=== PATIENT | female | born 1970 | race Caucasian/White ===

== ENCOUNTER 2021-05-07 19:37 | Emergency (ER) | payer OTHER, SELFPAY ==
[2021-05-07] VITALS (13 sets, daily range): BP systolic 138–187; BP diastolic 84–105; PULSE 68–82; RESP 12–20; TEMP 36.8; O2SAT 97–100; BMI 24.0
--- NOTE | 2021-05-07 19:59 | DI.RAD.S_ITS ---
PROCEDURE: XR CHEST 1V INDICATIONS: chest pain TECHNIQUE: One view of the chest was acquired. COMPARISON: None. FINDINGS: Surgical changes and devices: None. Lungs and pleura: Lungs are clear. No pleural effusions or pneumothorax. Mediastinum: Mediastinal contours appear normal. Heart size is normal. Bones and chest wall: No suspicious bony lesions. Overlying soft tissues appear unremarkable. IMPRESSION: No acute cardiopulmonary abnormalities or focal airspace disease. Dictated by: Aaron Landis M.D. on 05/07/2021 at 20:13 Approved by: Aaron Landis M.D. on 05/07/2021 at 20:13
[2021-05-07 20:16] LABS: Basophils Absolute Auto 0 /uL (0-100); Basophils Percent Auto 0.5 % (0-2); Eosinophils Absolute Auto 0 /uL (0-450); Eosinophils Percent Auto 0.7 % (2-4); Hematocrit 43.9 % (36-46); Hemoglobin 14.4 g/dL (12.0-16.0); Lymphocytes Absolute Auto 1800 /uL (1100-4500); Lymphocytes Percent Auto 25.8 % (25-40); Mean Corpuscular HGB Conc 32.8 % (30-36); Mean Corpuscular Hemoglobin 29.7 PG (26-34); Mean Corpuscular Volume 90.6 fL (80-100); Monocytes Absolute Auto 400 /uL (0-900); Monocytes Percent Auto 6.5 % (3-14); Neutrophils Absolute Auto 4600 /uL (1500-7000); Neutrophils Percent Auto 66.5 % (50-75); Platelet Count 160 X10^3/uL (150-400); Red Blood Cell Count 4.85 X10^6/uL (4.0-5.2); Red Cell Distribution Width 14.1 % (11.6-14.8); White Blood Cell Count 6.9 X10^3/uL (4.5-11.0)
[2021-05-07 20:20] LABS: Add Manual Diff / Slide Review SLIDE REVIEW
--- NOTE | 2021-05-07 20:20 | ED_ITS ---
HPI - Chest Pain General Chief Complaint: Chest Pain Stated Complaint: chest pain Time Seen by Provider: 05/07/21 20:04 Source: patient Mode of arrival: Ambulatory Limitations: no limitations History of Present Illness HPI narrative: Patient is a 51-year-old female here for evaluation of 3 weeks of off and on left-sided chest discomfort. She states that it has been going on for the past 3 weeks. It is happen every day. When it comes on it lasts for minutes and then completely resolves. She does state that it radiates to her left side when the symptoms happened. No shortness of breath. Does not seem to get worse with palpation or movement when it does occur. She did have recent life stress. Her approximately 3 weeks ago from a heart attack. This is when her symptoms started. Review of Systems Constitutional Constitutional: Reports system reviewed and no additional complaints, except as documented Cardiovascular Cardiovascular: Reports chest pain and Denies dyspnea Respiratory Respiratory: Denies dyspnea Gastrointestinal Gastrointestinal: Reports system reviewed and no additional complaints, except as documented Musculoskeletal Musculoskeletal: Reports system reviewed and no additional complaints, except as documented Integumentary/Breasts Skin/Breast: Reports system reviewed and no additional complaints, except as documented Neurologic Neurologic: Reports system reviewed and no additional complaints, except as documented Hematologic/Lymphatic Hematologic/Lymphatic: Reports system reviewed and no additional complaints, except as documented Allergic/Immunologic Allergic/Immunologic: Reports system reviewed and no additional complaints, except as documented Patient History Medical History Healthy adult alcohol intake frequency: a few times a month Substance Use Type: marijuana Exam Initial Vital Signs Initial Vital Signs: Vital Signs Temperature 98.3 F 05/07/21 19:40 Pulse Rate 76 05/07/21 19:40 Respiratory Rate 20 05/07/21 19:40 Blood Pressure 187/105 H 05/07/21 19:40 Pulse Oximetry 100 05/07/21 19:40 Const General: cooperative and comfortable Limitations: mental status not altered HENMT Head: normal to inspection and normocephalic Eyes General: appearance normal, both eyes and all related structures Chest Chest: No tenderness Resp Effort & Inspection: normal respiratory effort Auscultation: clear to auscultation bilaterally Cardio Rate: regular rate GI Inspection: non-distended Skin Lesions: no lesions Rashes: no rashes Neuro General: patient alert, patient awake and patient oriented x3 Cognition: normal cognition Speech: speech normal Extrem General: normal to inspection and capillary refill normal Psych Appearance: grossly normal and well kempt Scores HEART Score Heart Score history: Slightly Suspicious Heart Score EKG: Normal Heart Score Age: 45-64 years old Heart Score risk factors: No known risk factors Heart Score troponin: < or = to normal limit Heart Score Total: 1 Course Orders Ordered: ED Orders 05/07/21 19:59 XR chest 1V Stat EKG-12 Lead Stat 05/07/21 20:00 Complete Blood Count AUTO DIFF Stat Comprehensive Metabolic Panel Stat Lipase Stat Troponin & CK Cardiac Panel Stat 05/07/21 21:59 Troponin & CK Cardiac Panel Stat Vital Signs Vital signs: Vital Signs - 8 hr 05/07/21 19:40 05/07/21 19:46 05/07/21 20:00 Temperature 98.3 F Pulse Rate 76 82 71 Respiratory Rate 20 16 Blood Pressure 187/105 H 187/105 H Pulse Oximetry 100 98 99 05/07/21 20:01 05/07/21 20:30 05/07/21 21:00 Temperature Pulse Rate 73 68 71 Respiratory Rate 18 16 16 Blood Pressure 171/89 H Pulse Oximetry 99 97 98 05/07/21 21:13 05/07/21 21:30 05/07/21 21:57 Temperature Pulse Rate 70 75 74 Respiratory Rate 12 17 14 Blood Pressure 146/92 H 162/105 H 154/105 H Pulse Oximetry 97 98 100 05/07/21 22:00 05/07/21 22:30 05/07/21 22:31 Temperature Pulse Rate 81 74 73 Respiratory Rate 17 16 18 Blood Pressure 157/101 H 165/84 H Pulse Oximetry 99 97 97 05/07/21 22:59 Temperature 98.2 F Pulse Rate 79 Respiratory Rate 16 Blood Pressure 138/91 H Pulse Oximetry 97 MDM - Chest Pain Lab Data Attestation: I reviewed the patient's lab results. Result diagrams: 05/07/21 20:00 05/07/21 20:00 Labs: Lab Results 05/07/21 05/07/21 05/07/21 Range/Units 20:00 20:00 21:59 WBC 6.9 (4.5-11.0) X10^3/uL RBC 4.85 (4.0-5.2) X10^6/uL Hgb 14.4 (12.0-16.0) g/dL Hct 43.9 (36-46) % MCV 90.6 (80-100) fL MCH 29.7 (26-34) PG MCHC 32.8 (30-36) % RDW 14.1 (11.6-14.8) % Plt Count 160 (150-400) X10^3/uL Neut % (Auto) 66.5 (50-75) % Lymph % (Auto) 25.8 (25-40) % [place] % (Auto) 6.5 (3-14) % Eos % (Auto) 0.7 L (2-4) % Baso % (Auto) 0.5 (0-2) % Neut # (Auto) 4600 (1744-6831) /uL Lymph # (Auto) 1800 (6583-2365) /uL [place] # (Auto) 400 (0-900) /uL Eos # (Auto) 0 (0-450) /uL Baso # (Auto) 0 (0-100) /uL Platelet Estimate Adequate on smear Plt Morphology Comment RBC Morphology Normal morphology Sodium 138 (137-145) mmol/L Potassium 3.8 (3.4-5.1) mmol/L Chloride 105 (98-107) mmol/L Carbon Dioxide 24 (22-32) mmol/L BUN 15 (7-17) mg/dL Creatinine 0.73 (0.52-1.04) mg/dL Estimated GFR > 60.0 (>60) mL/min BUN/Creatinine Ratio 20.5 (6-22) Glucose 90 (70-100) mg/dL Calcium 9.3 (8.4-10.2) mg/dL Total Bilirubin 0.5 (0.2-1.3) mg/dL AST 30 (14-36) IU/L ALT 18 (<35) IU/L Alkaline Phosphatase 71 (38-126) U/L Total Creatine Kinase 107 100 (30-135) U/L CK-MB (CK-2) 0.63 TNP (<2.37) ng/mL CK-MB (CK-2) Rel Index 0.6 L TNP (1.5-5.0) % Troponin I < 0.012 0.017 (0.01-0.034) ng/mL Total Protein 7.5 (6.3-8.2) g/dL Albumin 4.5 (3.5-5.0) g/dL Globulin 3.0 (1.7-4.1) g/dL Albumin/Globulin Ratio 1.5 (1.0-2.8) Lipase 123 (23-300) U/L Imaging Data Chest x-ray: Radiologist's Impression: [address] [id number] ReportSigned Patient: Annamaria Peck CMR#: [id number]: 1970Acct:[id number]/Sex: 51 / FDate of Service: 05/07/21Loc: EDAccession Number: [id number] Procedure: XR chest 1V Ordering Provider: Kvng Waller D.O. PROCEDURE: XR CHEST 1V INDICATIONS: chest pain TECHNIQUE: One view of the chest was acquired. COMPARISON: None. FINDINGS: Surgical changes and devices: None. Lungs and pleura: Lungs are clear. No pleural effusions or pneumothorax. Mediastinum: Mediastinal contours appear normal. Heart size is normal. Bones and chest wall: No suspicious bony lesions. Overlying soft tissues appear unremarkable. IMPRESSION: No acute cardiopulmonary abnormalities or focal airspace disease. Dictated by: Aaron Landis M.D. on 05/07/2021 at 20:13 Approved by: Aaron Landis M.D. on 05/07/2021 at 20:13 ECG Data Attestation: I personally reviewed and interpreted this ECG as follows: Prior ECG tracings: not available for review Interpretation: Sinus rhythm Ventricular rate is 70 LVH Normal QRS Normal QTC No ST T wave changes MDM Narrative Medical decision making narrative: Patient has a low risk heart score. LVH on the EKG otherwise unremarkable. Chest x-ray is unremarkable. Troponins are negative x2. Has had symptoms off and on for the past 3 weeks. I did discuss the symptoms with the patient. Will discharge home and have her contact her primary doctor for outpatient stress testing. We also discussed her high blood pressure. She is currently on medications for this. We went over again how to take her blood pressure at home. Patient was given return precautions. She expressed understanding and agreement. Discharge Plan Departure Patient Disposition: Home Clinical Impression: Atypical chest pain Instructions: DI for Atypical Chest Pain Activity Restrictions/Additional Instructions: I recommend that tomorrow you contact your primary doctor to discuss further workup to include the indications for a stress test. Continue to take your blood pressure medications and record your blood pressures at home like we discussed. Return to the emergency department for any new or worsening symptoms
[2021-05-07 20:34] LABS: Alanine Aminotransferase 18 IU/L (<35); Albumin 4.5 g/dL (3.5-5.0); Albumin Globulin Ratio 1.5 (1.0-2.8); Alkaline Phosphatase 71 U/L (38-126); Aspartate Aminotransferase 30 IU/L (14-36); BUN Creatinine Ratio 20.5 (6-22); Bilirubin Total 0.5 mg/dL (0.2-1.3); Blood Urea Nitrogen 15 mg/dL (7-17); Calcium 9.3 mg/dL (8.4-10.2); Carbon Dioxide 24 mmol/L (22-32); Chloride 105 mmol/L (98-107); Creatine Kinase 107 U/L (30-135); Estimated Glomerular Filt Rate > 60.0 mL/min (>60); Glucose 90 mg/dL (70-100); HEMOLYSIS 23 (0-50); Lipase 123 U/L (23-300); Potassium 3.8 mmol/L (3.4-5.1); Sodium 138 mmol/L (137-145); Total Protein 7.5 g/dL (6.3-8.2)
[2021-05-07 20:43] LABS: Platelet Estimate Adequate on smear; RBC Morphology Normal Morphology
[2021-05-07 20:44] LABS: Troponin I < 0.012 ng/mL (0.01-0.034)
[2021-05-07 20:49] LABS: CKMB % Relative Index 0.6 % (1.5-5.0); Creatine Kinase MB 0.63 ng/mL (<2.37)
[2021-05-07 22:14] LABS: Creatine Kinase 100 U/L (30-135)
[2021-05-07 22:38] LABS: Troponin I 0.017 ng/mL (0.01-0.034)
== END 2021-05-07 23:01 | disposition home or self-care (01) ==
PROVIDERS: Emergency Provider Emergency Medicine
DX: R07.89 Other chest pain (principal)
CPT/HCPCS: 36415; 71045; 80053; 82550; 82553; 83690; 84484; 85025; 93005; 99283; 99284